=== PATIENT | male | born 1985 | race Caucasian/White ===

== ENCOUNTER 2017-05-27 14:58 | Emergency (ER) | payer OTHER ==
[~2017-05-27] VITALS: Ht 177.8 cm; Wt 106.5 kg
[2017-05-27 14:59] VITALS: BP 138/96
[2017-05-27] MEDS ORDERED: HYDROcodone/APAP 5/325 TABLET PO ONE (16:30)
[2017-05-27] MEDS ORDERED: HYDROcodone/APAP 5/325 TABLET ONE (16:56)
== END 2017-05-27 18:14 | disposition home or self-care (01) ==
LOC: ED 18:08
DX: S40.021A Contusion of right upper arm, initial encounter (principal); W22.01XA Walked into wall, initial encounter; Y93.89 Activity, other specified; Y99.8 Other external cause status; Y92.830 Public park as the place of occurrence of the external cause
CPT/HCPCS: 99284

== ENCOUNTER 2019-03-16 20:21 | Emergency (ER) | payer SELFPAY ==
[~2019-03-16] VITALS: Ht 177.8 cm; Wt 104.7 kg
[2019-03-16 20:25] VITALS: BP 124/74
--- NOTE | 2019-03-16 21:21 | NUR ---
pt has swelling and bump on left hand thumb.
[2019-03-16] MEDS ORDERED: HYDROcodone/APAP 5/325 TABLET PO STA (21:56)
[2019-03-16] MEDS ORDERED: HYDROcodone/APAP 5/325 TABLET ONE (21:57)
[2019-03-16] MEDS ORDERED: LIDOCAINE-MPF 1%, 5ML INFIL ONE (22:00)
[2019-03-16] MEDS ORDERED: NEOSPORIN OINT. PKT 1 PACKET ONE (22:25)
[2019-03-16] MEDS ORDERED: ONDANSETRON ODT 4 MG ONE (22:31)
--- NOTE | 2019-03-16 22:54 | NUR ---
Patient/Caregiver given discharge instructions and they have confirmed that they understand the instructions. Patient ambulatory with steady gait.
[2019-03-16] MEDS ORDERED: ONDANSETRON ODT 4 MG PO ONE (23:00)
== END 2019-03-16 22:56 | disposition home or self-care (01) ==
LOC: ED 22:40
DX: L02.512 Cutaneous abscess of left hand (principal); B07.0 Plantar wart
CPT/HCPCS: 10060; 99283; Q0162